=== PATIENT | male | born 1960 | race Caucasian/White ===

== ENCOUNTER 2021-05-14 13:51 | Emergency (ER) | payer MEDICARE, MEDICAID, SELFPAY ==
--- NOTE | ~2021-05-14 | XR_ITS ---
EXAMINATION: XR chest 2V DATE: 05/14/2021 14:50 INDICATION: Left chest pain. Shortness of breath. TECHNIQUE: Frontal and lateral views of the chest were obtained. COMPARISON: Chest single view 05/18/2016 FINDINGS: There is mild atelectasis at left lung base. There is mild scarring at the lung apices. No pleural effusion or pneumothorax. The heart size is normal. IMPRESSION: 1. Mild atelectasis at left lung base and mild scarring at the lung apices. Reviewed, dictated and finalized at location A.
[2021-05-14 14:00] VITALS: BP 165/82; PULSE 66; RESP 18; TEMP 36.7; O2SAT 98
--- NOTE | 2021-05-14 14:24 | ECG_ITS ---
Measurements Intervals [place] Rate: 68 P: 56 [place]: 176 QRS: 66 QRSD: 102 T: 51 QT: 413 QTc: 441 Interpretive Statements SINUS RHYTHM INCOMPLETE RIGHT BUNDLE BRANCH BLOCK BASELINE ARTIFACT- I, II, AVR, AVL BORDERLINE ECG Electronically Signed On 05-14-2021 15:34:15 CDT by Terence Grider D.O.
[2021-05-14] MEDS: SODIUM CHLORIDE 0.9% IV 1,000 ML 999 ML IV CONT (14:30)
[2021-05-14] MEDS: MAG HYDROX/ALUMINUM HYD/SIMETH 30 ML, PHENobarb/HYOSCY/ATROPINE/SCOP 32.4 MG, LIDOCAINE... PO (14:34)
[2021-05-14 15:03] LABS: Basophils Absolute Auto 0.05 K/mm3 (0.00-0.10); Basophils Percent Auto 0.6 % (0.0-1.0); Eosinophils Absolute Auto 0.34 K/mm3 (0.02-0.50); Eosinophils Percent Auto 4.1 % (1.0-6.0); Hematocrit 43.3 % (40.0-54.0); Hemoglobin 14.5 g/dL (14.0-18.0); Immature Granulocyte Absolute 0.02 K/mm3 (0.00-0.00); Immature Granulocyte Percent A 0.2 % (0.0-0.0); Lymphocytes Absolute Auto 2.81 K/mm3 (1.10-4.50); Lymphocytes Percent Auto 34.3 % (18.0-42.0); Mean Corpuscular HGB Conc 33.5 g/dL (32.0-36.0); Mean Corpuscular Hemoglobin 30.1 pg (27.0-31.0); Mean Platelet Volume 10.8 fl (8.7-11.0); Monocytes Percent Auto 9.8 % (2.0-11.0); Neutrophils Absolute Auto 4.2 K/mm3 (1.7-7.2); Platelet Count Result 174 K/mm3 (150-420); Red Blood Count 4.81 M/mm3 (4.70-6.10); Red Cell Distribution Width 13.3 % (11.6-14.4); White Blood Count 8.2 K/mm3 (4.8-10.8)
[2021-05-14 15:18] LABS: Prothrombin Time 10.7 Seconds (9.50-12.10)
[2021-05-14 15:19] LABS: D Dimer 0.43 mg/L (0.19-0.50)
[2021-05-14 15:20] VITALS: BP 144/70; PULSE 61; RESP 16; O2SAT 95
[2021-05-14 15:23] LABS: Lactic Acid Reflex 1.3 mmol/L (0.4-2.0)
[2021-05-14 15:24] LABS: Alanine Aminotransferase 47 U/L (16-63); Albumin Level 3.4 g/dL (3.4-5.0); Alkaline Phosphatase 53 U/L (46-116); Anion Gap 11 mmol/L (8-16); Aspartate Amino Transferase 11 U/L (15-37); Bilirubin,Total 0.4 mg/dL (0.00-1.00); Blood Urea Nitrogen 14 mg/dL (7-18); Calcium 8.7 mg/dL (8.5-10.1); Carbon Dioxide 27 mmol/L (21-32); Chloride 107 mmol/L (98-108); Estimated CRCL calculation 87 ml/min; Estimated Glomerular Filt Rate > 60; Glucose 208 mg/dL (70-99); Lipase 76 U/L (73-393); NT Pro B Type Natriuretic Pept 33 pg/mL (0-125); Osmolality Calculated 306 mOsm/kg (285-295); Potassium 3.9 mmol/L (3.5-5.1); Sodium 145 mmol/L (136-145); Total Protein 6.4 g/dL (6.4-8.2)
[2021-05-14 15:25] LABS: Troponin I 6.3 ng/L (0.00-60.4)
--- NOTE | 2021-05-14 15:31 | ED.CHESTPAIN ---
HPI - Chest Pain General Chief Complaint: Chest Pain Stated Complaint: chest pain high blood pressure Source: patient Mode of arrival: ambulatory Limitations: no limitations History of Present Illness HPI narrative: this is a 60-year-old gentleman with history of diabetes that presents with a 5 day history of low-grade chest discomfort epigastric nonradiating reproducible with no nausea vomiting no shortness of breath no fever chills. The patient describes a pressure-like sensation to out of 10 reproducible on palpation and epigastric in nature with some no dysuria no flank pain no abdominal pain. MD complaint: chest discomfort Onset (ago): day(s) Timing of current episode: constant Prior episodes: Yes Onset: during rest Pain location: epigastric Pain radiation: none Severity: mild Pain scale (0-10): 2 Relieving factors: nothing Exacerbating factors: nothing Related Data Home Medications Medication Instructions Recorded Confirmed albuterol sulfate 2 puff INHALATION PRN PRN 05/14/21 05/14/21 atorvastatin 20 mg PO DAILY 05/14/21 05/14/21 bupropion HCl 150 mg PO BID 05/14/21 05/14/21 gabapentin 100 mg PO TID 05/14/21 05/14/21 metformin 500 mg PO BID 05/14/21 05/14/21 omeprazole 20 mg PO DAILY 05/14/21 05/14/21 oxycodone 10 mg PO PRN PRN 05/14/21 05/14/21 testosterone [Androderm] 1 patch TOPICAL DAILY 05/14/21 05/14/21 umeclidinium [Incruse Ellipta] 1 inh INHALATION DAILY 05/14/21 05/14/21 Allergies Allergy/AdvReac Type Severity Reaction Status Date / Time Sulfa (Sulfonamide Allergy Unknown Verified 05/14/21 14:19 Antibiotics) Review of Systems Review of Systems: All systems reviewed & are unremarkable except as noted in HPI and below PMFSH Past Medical History Medical History Diabetes mellitus Exam Const: General: no acute distress Orientation/consciousness: patient oriented x3 HENMT: Head: normal to inspection Eyes: Conjunctivae: conjunctivae normal Pupils: Equal, round and reactive pupils present EOM: EOMs intact bilaterally Direct Ophthalmoscopy: no photophobia Neck: Neck: normal visual inspection Chest: Chest palpation & inspection: normal inspection of the chest Other: epigastric pain with palpation and reproducible chest pain with palpation Resp: Effort & Inspection: normal respiratory effort Cardio: Rate: regular rate Rhythm: regular rhythm GI: Auscultation: normal bowel sounds : Testes: Testes normal Back/Spine/Pelvis: Back: no CVA tenderness Skin: General skin exam: normal color Rashes: no rashes Neuro: General: patient oriented x3 Extrem: General: normal to inspection Psych: Mental Status: mental status grossly normal Affect: normal affect Course Course Emergency Course: patient continues to have low grade 2/10 discomfort in the epigastric area after GI cocktail reviewed labs an EKG with patient including chest x-ray advised patient to follow-up with primary care physician. Vital Signs Vital signs: Vital Signs Temperature 36.7 C 05/14/21 14:00 Pulse Rate 66 05/14/21 14:00 Respiratory Rate 18 05/14/21 14:00 Blood Pressure 165/82 H 05/14/21 14:00 Pulse Oximetry 98 05/14/21 14:00 Temperature 36.7 C 05/14/21 14:00 Pulse Rate 61 05/14/21 15:20 Respiratory Rate 16 05/14/21 15:20 Blood Pressure 144/70 H 05/14/21 15:20 Pulse Oximetry 95 05/14/21 15:20 MDM - Chest Pain Lab Data Result diagrams: 05/14/21 14:57 05/14/21 14:57 Labs: Lab Results 05/14/21 05/14/21 05/14/21 Range/Units 14:57 14:57 14:57 WBC 8.2 (4.8-10.8) K/mm3 RBC 4.81 (4.70-6.10) M/mm3 Hgb 14.5 (14.0-18.0) g/dL Hct 43.3 (40.0-54.0) % MCV 90.0 (78.0-102.0) fL MCH 30.1 (27.0-31.0) pg MCHC 33.5 (32.0-36.0) g/dL RDW 13.3 (11.6-14.4) % Plt Count 174 (150-420) K/mm3 MPV 10.8 (8.7-11.0) fl Immature Gran % (Auto) 0.2 H (0.
== END 2021-05-14 15:45 | disposition home or self-care (01) ==
PROVIDERS: Emergency Provider Emergency Medicine; PCP Physician Assistant
DX: R07.89 Other chest pain (principal); K29.60 Other gastritis without bleeding
CPT/HCPCS: 36415; 71046; 80053; 83605; 83690; 83880; 84484; 85025; 85380; 85610; 85730; 93005; 96360; 99283; 99284; A9270; J7030

== ENCOUNTER 2025-11-04 08:00 | Outpatient (RCR) | payer MEDICARE, MEDICAID, SELFPAY ==
--- NOTE | 2025-09-16 09:08 | OPREHPOC ---
Outpatient Therapy Plan of Care This is a Multidisciplinary Plan of Care that may contain components documented by all disciplines (PT, OT, and ST.) PT Problem 1 PT Problem #1 Knowledge Deficit PT Goal 1 Goal / Goal Update Independent and compliant with HEP. Target Visit 2 PT Problem 2 PT Problem #2 Pain PT Goal 1 Goal / Goal Update Pt to report no worse than 6/10 pain in the R shoulder. Target Visit 12 PT Problem 3 PT Problem #3 Impaired Strength PT Goal 1 Goal / Goal Update Pt to improve gross R shoulder strength to 4+/5 without pain. Target Visit 12 PT Problem 4 PT Problem #4 Impaired Range of Motion PT Goal 1 Goal / Goal Update Pt to improve R active shoulder flexion to 120 deg . Pt to improve R active shoulder abduction to 90 deg. Pt to improve R shoulder functional IR to lumbar spine. Pt to improve R shoulder functional ER to occiput. Target Visit 12 PT Problem 5 PT Problem #5 Impaired Functional Mobility PT Goal 1 Goal / Goal Update Pt to report 20% reduction in perceived disability on Quick DASH. Pt to report improved ability to perform hygiene and dressing activities. Target Visit 12
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
--- NOTE | 2025-10-21 08:43 | OPREHPOC ---
Outpatient Therapy Plan of Care This is a Multidisciplinary Plan of Care that may contain components documented by all disciplines (PT, OT, and ST.) PT Problem 1 PT Problem #1 Knowledge Deficit PT Goal 1 Goal / Goal Update Independent and compliant with HEP. Target Visit 2 Progress Met PT Problem 2 PT Problem #2 Pain PT Goal 1 Goal / Goal Update Pt to report no worse than 6/10 pain in the R shoulder. Target Visit 12 Progress Met PT Problem 3 PT Problem #3 Impaired Strength PT Goal 1 Goal / Goal Update Pt to improve gross R shoulder strength to 4+/5 without pain. Target Visit 12 Progress Partially Met PT Problem 4 PT Problem #4 Impaired Range of Motion PT Goal 1 Goal / Goal Update Pt to improve R active shoulder flexion to 120 deg . Pt to improve R active shoulder abduction to 90 deg. Pt to improve R shoulder functional IR to lumbar spine. Pt to improve R shoulder functional ER to occiput. Target Visit 12 Progress Met PT Problem 5 PT Problem #5 Impaired Functional Mobility PT Goal 1 Goal / Goal Update Pt to report 20% reduction in perceived disability on Quick DASH. -met Pt to report improved ability to perform hygiene and dressing activities. Target Visit 12 Progress Partially Met
--- NOTE | 2025-10-21 08:44 | PTOPPROG ---
Assessment and note entered by Jessika Sanchez, PT Evaluation Information Assessment Status Progress ICD-10 Condition Codes (PT) Pain in right shoulder M25.511 Other ICD-10 Condition Codes ( M19.011 PT) Onset 04/07/23 Subjective Information Bladimir reports his shoulder pain has improved since starting PT. He states his pain has been 1/10 at the lowest and 4/10 at the highest in the last week. He does continue to report some difficulty with dressing and hygiene activities. Assessment PT Clinical Summary Mr. Barrios has attended 10 skilled PT visits addressing R shoulder pain. He has made excellent progress thus far in PT and demonstrates the most improvement with his R shoulder AROM, pain severity and Quick DASH score. While his strength has also improved, he continues to demonstrate gross R shoulder weakness and would benefit from continued skilled PT per POC to make further progress in this area to allow him to perform daily functional tasks such as dressing and hygiene activities with less difficulty. Plan of Care Interventions Electrical Stimulation,Gait Training,Hot Pack/Cold Pack,Manual Therapy,Neuro Re-education,Patient/ Caregiver Education,Therapeutic Activities, Therapeutic Exercise,Self-Care/Home Management Other Interventions Dry needling PT Services Indicated Yes Treatment Frequency and Continue per POC Duration These treatments will address the objective and functional deficits as defined above. The patient will be advanced safely and appropriately in order for the patient to progress towards his/her prior level of function. Additional exercises will be introduced and as well as a comprehensive home exercise program upon discharge, if needed, ?to ensure carryover of functional gains achieved in the clinic. This treatment plan has been reviewed and agreement upon by the patient.
--- NOTE | 2025-11-04 09:07 | OPREHPOC ---
Outpatient Therapy Plan of Care This is a Multidisciplinary Plan of Care that may contain components documented by all disciplines (PT, OT, and ST.) PT Problem 1 PT Problem #1 Knowledge Deficit PT Goal 1 Goal / Goal Update Independent and compliant with HEP. Target Visit 2 Progress Met PT Problem 2 PT Problem #2 Pain PT Goal 1 Goal / Goal Update Pt to report no worse than 6/10 pain in the R shoulder. Target Visit 12 Progress Partially Met PT Problem 3 PT Problem #3 Impaired Strength PT Goal 1 Goal / Goal Update Pt to improve gross R shoulder strength to 4+/5 without pain. Target Visit 12 Progress Partially Met PT Problem 4 PT Problem #4 Impaired Range of Motion PT Goal 1 Goal / Goal Update Pt to improve R active shoulder flexion to 120 deg . met Pt to improve R active shoulder abduction to 90 deg. met Pt to improve R shoulder functional IR to lumbar spine. met Pt to improve R shoulder functional ER to occiput. met Target Visit 12 Progress Met PT Problem 5 PT Problem #5 Impaired Functional Mobility PT Goal 1 Goal / Goal Update Pt to report 20% reduction in perceived disability on Quick DASH. -partially met Pt to report improved ability to perform hygiene and dressing activities. met Target Visit 12 Progress Partially Met
--- NOTE | 2025-11-04 09:07 | PTOPDC ---
Assessment and note entered by JT File, PT Evaluation Information Assessment Status Discharge ICD-10 Condition Codes (PT) Pain in right shoulder M25.511 Other ICD-10 Condition Codes ( M19.011 PT) Onset 04/07/23 Subjective Information patient reports he is much better than he was prior to starting skilled PT. he reports he is ready to DC skilled PT today, and go to an HEP only. he reports he is able to sleep and get dressed with much more ease and less pain. Reported Pain Level Pain Score 3: Self Report Assessment PT Clinical Summary mr. marks reports feeling much better overall since starting skilled PT. he presents today having achieved rom goals, and functional goals except for quick dash. he does also still lack a bit of strength achievement today. he will DC skilled PT and continue his HEP independent at home to continue to improve strength and functional performance. Plan of Care PT Services Indicated Yes
== END 2025-11-04 13:03 | disposition home or self-care (01) ==
LOC: CHSPT 08:00
PROVIDERS: Visit Provider Nurse Practitioner Family
DX: M19.011 Primary osteoarthritis, right shoulder (principal); M25.511 Pain in right shoulder
CPT/HCPCS: 97014; 97110; 97112; 97161; G0283